=== PATIENT | female | born 1985 | race Caucasian/White ===

== ENCOUNTER 2018-04-04 21:31 | Emergency (ER) | payer SELFPAY ==
[~2018-04-04] VITALS: Ht 160 cm; Wt 53.0 kg
[2018-04-04 23:31] LABS: BASOPHILS % 0.5 % (0.0-2.0); HEMATOCRIT. 32.3 % (36.0-48.0); LYMPHOCYTES % 13.5 % (20.0-50.0); MEAN CORPUSCULAR HEMOGLOBIN 35.5 pg (28.0-32.0); MEAN CORPUSCULAR VOLUME 104.8 fL (81.0-99.0); MEAN PLATELET VOLUME 8.5 fl (7.4-10.4); MONOCYTES % 5.7 % (2.0-8.0); NEUTROPHILS % 79.3 % (40.0-76.0); PLATELET 226 x1000/uL (130-400); RED BLOOD CELL COUNT 3.08 mill/uL (4.2-5.4); RED CELL DISTRIBUTION WIDTH 14.1 % (11.6-14.6)
[2018-04-04 23:34] LABS: CHLORIDE 95 mEq/L (98-107)
[2018-04-04 23:36] LABS: INR 1.1; PROTHROMBIN TIME 11.2 sec (9.1-11.1)
[2018-04-04 23:38] LABS: ETHANOL BLOOD < 10 mg/dL
[2018-04-04 23:52] LABS: HCG SCREEN NEGATIVE
[2018-04-05] MEDS ORDERED: ACETAMINOPHEN WITH CODEINE 300/30MG TABLET PO ONE (02:30)
[2018-04-05 03:48] VITALS: BP 146/83
== END 2018-04-05 03:50 | disposition home or self-care (01) ==
LOC: ER 21:31 → CANBEDREQ 04-05 05:11
DX: G93.49 Other encephalopathy (principal); R00.1 Bradycardia, unspecified; R03.0 Elevated blood-pressure reading, without diagnosis of hypertension; N18.6 End stage renal disease; Z99.2 Dependence on renal dialysis
CPT/HCPCS: 36415; 70450; 71045; 80053; 82962; 84484; 84703; 85025; 85610; 93005; 99285; G0482; Z7610

== ENCOUNTER 2020-09-15 12:28 | Emergency (ER) | payer OTHER ==
[~2020-09-15] VITALS: Ht 165.1 cm; Wt 55.0 kg
[2020-09-15] MEDS ORDERED: ACETAMINOPHEN 500MG TABLET PO ONE (13:00)
[2020-09-15 16:09] VITALS: BP 158/98
== END 2020-09-15 16:10 | disposition home or self-care (01) ==
LOC: ER 12:55
DX: S40.022A Contusion of left upper arm, initial encounter (principal); S70.02XA Contusion of left hip, initial encounter; M54.2 Cervicalgia; V49.59XA Passenger injured in collision with other motor vehicles in traffic accident, initial encounter; Y93.89 Activity, other specified; Y92.488 Other paved roadways as the place of occurrence of the external cause; I12.0 Hypertensive chronic kidney disease with stage 5 chronic kidney disease or end stage renal disease; N18.6 End stage renal disease; Z99.2 Dependence on renal dialysis; Z85.9 Personal history of malignant neoplasm, unspecified
CPT/HCPCS: 73030; 73060; 73080; 73502; 99284

== ENCOUNTER 2021-09-30 17:19 | Observation (INO) | payer MEDICAID, OTHER | END 2021-09-30 18:45 | disposition home or self-care (01) | LOC: 8EST NSY 17:19 | PROVIDERS: ADMIT Specialist; ATTEND Specialist | DX: O42.913 Preterm premature rupture of membranes, unspecified as to length of time between rupture and onset of labor, third trimester (principal); O09.523 Supervision of elderly multigravida, third trimester; Z3A.34 34 weeks gestation of pregnancy | CPT/HCPCS: 59025; 76805; 76818; G0378; 99281; G0379 ==